=== PATIENT | male | born 1995 | race Two or more races ===

== ENCOUNTER 2016-09-26 17:32 | Emergency (ER) | payer MEDICAID, OTHER ==
[~2016-09-26] VITALS: Ht 172.7 cm; Wt 72.6 kg
[~2016-09-26 17:32] MED LIST: DOCUSATE SODIU100 M2 ORAL; IBUPROFEN800 M1 PO; NORCO 5-325 TA1 EACH ORAL
[2016-09-26 18:06] VITALS: BP 125/81
[2016-09-26] MEDS ORDERED: TdaP Vaccine 0.5ml Syr IM ONE (18:45)
[2016-09-26] MEDS ORDERED: Norco 5mg/325mg tab ORAL ONE (18:45)
[2016-09-26] MEDS ORDERED: Lidocaine 1% 10mg/ml/Epi 0.005mg/ml 30ml vial INJ ONE (19:00)
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
[2016-09-26 20:06] VITALS: BP 121/79
[2016-09-26] MEDS ORDERED: ceFAZolin sod 1 GM in D5W 55 ML IVPB SCH (22:00)
[2016-09-26 22:06] VITALS: BP 129/79
[2016-09-26] MEDS ORDERED: Morphine Sulfate 4mg/ml Inj IVP ONE (22:30)
[2016-09-26] MEDS ORDERED: fentaNYL 100 mcg/2 mL IV ONE (23:45)
[2016-09-26 23:46] VITALS: BP 129/76
--- NOTE | 2016-09-27 11:00 | Diagnostic Imaging Report ---
Indications: PAIN skateboarding injury, trauma to jaw Technique: Spiral images obtained through the facial bones. No IV contrast utilized. Multiplanar reconstructions were generated.Total dose length product 708 mGycm. CTDIvol(s) 28mGy Comparison: None Findings: There is a comminuted fracture of the mental region of the mandible, predominantly to the right of midline, which is nondisplaced. There is a nondisplaced oblique fracture of the right mandibular neck. There is a soft tissue superficial laceration involving the premenstrual soft tissues The dentition appears intact. There are impacted bilateral posterior mandibular third molars. No other acute fractures. The sinuses are clear. The orbits are intact. The included intracranial structures are unremarkable.. Impression: Positive for multipartite nondisplaced mandibular fracture, as described Associated prevertebral soft tissue laceration This agrees with the preliminary interpretation provided overnight by Dr. Mcelroy The CT scanner at [facility] is accredited by the [employer] and the scans are performed using protocols designed to limit radiation exposure to as low as reasonably achievable to attain images of sufficient resolution adequate for diagnostic evaluation.
== END 2016-09-26 23:46 | disposition short-term general hospital (02) ==
LOC: EMR 18:40
DX: S01.81XA Laceration without foreign body of other part of head, initial encounter (principal); S02.69XB Fracture of mandible of other specified site, initial encounter for open fracture; W01.0XXA Fall on same level from slipping, tripping and stumbling without subsequent striking against object, initial encounter; Y93.51 Activity, roller skating (inline) and skateboarding; Y92.89 Other specified places as the place of occurrence of the external cause; Z23 Encounter for immunization
CPT/HCPCS: 12011; 70486; 90471; 90715; 96374; 96375; 99285; J2270; J3010; Z7502

== ENCOUNTER 2017-04-21 19:25 | Emergency (ER) | payer MEDICAID, OTHER ==
[~2017-04-21] VITALS: Ht 170.2 cm; Wt 72.6 kg
[2017-04-21] MEDS ORDERED: NKM (19:34)
[2017-04-21 19:40] VITALS: BP 132/79
[2017-04-21] MEDS ORDERED: IBUPROFEN600 MG ORAL (19:53)
[2017-04-21 20:11] VITALS: BP 132/79
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
--- NOTE | 2017-04-22 10:51 | Diagnostic Imaging Report ---
Indication: pain Findings: 3 views of the right hand were obtained. Normal bony mineralization and alignment are demonstrated. No acute fractures, erosions, or periosteal reaction are seen. Soft tissues are unremarkable. Impression: No acute findings.
== END 2017-04-21 20:11 | disposition home or self-care (01) ==
LOC: EMR 19:40
DX: M79.644 Pain in right finger(s) (principal)
CPT/HCPCS: 99283

== ENCOUNTER 2018-06-14 08:56 | Emergency (ER) | payer MEDICAID, OTHER ==
[~2018-06-14] VITALS: Ht 170.2 cm; Wt 72.6 kg
[~2018-06-14 08:56] MED LIST changes: +IBUPROFEN600 MG ORAL; +NKM
[2018-06-14 09:13] VITALS: BP 124/73
[2018-06-14] MEDS ORDERED: Tylenol #3 tab (300mg/30mg) PO ONE (09:30)
[2018-06-14] MEDS ORDERED: IBUPROFEN600 MG ORAL (10:40)
[2018-06-14] MEDS ORDERED: ACETAMINOPHEN-1 EAC1 ORAL (10:40)
[2018-06-14 10:43] VITALS: BP 118/72
--- NOTE | 2018-06-14 11:41 | Diagnostic Imaging Report ---
EXAM: XR Right Shoulder Complete, 2 or More Views CLINICAL HISTORY: PAIN TECHNIQUE: Two or more views of the right shoulder. COMPARISON: No relevant prior studies available. FINDINGS: Bones/joints: Unremarkable. Normal alignment is seen at the acromioclavicular and glenohumeral joints. No visible displaced fracture or dislocation. No osseous erosions. Coracoclavicular and subacromial spaces appear within normal limits. The clavicle and scapula appear intact. Soft tissues: Unremarkable. IMPRESSION: Unremarkable right shoulder x-rays.
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
== END 2018-06-14 10:43 | disposition home or self-care (01) ==
LOC: EMR 09:29
DX: S43.004A Unspecified dislocation of right shoulder joint, initial encounter (principal); Y04.0XXA Assault by unarmed brawl or fight, initial encounter; Y92.89 Other specified places as the place of occurrence of the external cause
CPT/HCPCS: 29105; 99283

== ENCOUNTER 2020-05-20 14:19 | Emergency (ER) | payer SELFPAY ==
[~2020-05-20] VITALS: Ht 172.7 cm; Wt 92.5 kg
[~2020-05-20 14:19] MED LIST changes: +ACETAMINOPHEN-1 EAC1 ORAL
[2020-05-20 14:48] VITALS: BP 98/66
[2020-05-20 15:00] VITALS: BP 98/66
[2020-05-20] MEDS ORDERED: Bacitracin Oint UD TOPIC ONE (15:00)
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
[2020-05-20] MEDS ORDERED: CEPHALEXIN500 MG ORAL (15:02)
[2020-05-20] MEDS ORDERED: MUPIROCIN22 GM TOPIC (15:02)
== END 2020-05-20 15:00 | disposition home or self-care (01) ==
LOC: EMR 14:48
DX: S20.313A Abrasion of bilateral front wall of thorax, initial encounter (principal); S20.312A Abrasion of left front wall of thorax, initial encounter; L08.9 Local infection of the skin and subcutaneous tissue, unspecified; Y35.0 Legal intervention involving firearm discharge; Y92.9 Unspecified place or not applicable
CPT/HCPCS: 99282